=== PATIENT | male | born 1955 | race Caucasian/White ===

== ENCOUNTER 2017-10-17 22:49 | Emergency (ER) | payer OTHER ==
[~2017-10-17] VITALS: Ht 180.3 cm; Wt 96.9 kg
[~2017-10-17 22:49] MED LIST: FELO10TA PO; LISI-363 PO
[2017-10-17 22:58] VITALS: BP 133/68; PULSE 82; RESP 16; TEMP 97.7; O2SAT 95
[2017-10-17 23:10] VITALS: BP 133/68; PULSE 82; RESP 16; TEMP 97.7; O2SAT 95
[2017-10-17] MEDS ORDERED: LISI-515 PO (23:15)
--- NOTE | 2017-10-17 23:18 | PD ---
HPI . Wrist bleeding Chief Complaint: bleeding Time Seen by Provider: 23:08 Travel History International Travel<30 days: No Contact w/Intl Traveler<30days: No History of Present Illness HPI This patient presents with bleeding from his right wrist. History of chronic liver disease. He has multiple superficial hematomas. He states that he inadvertently was struck in the right wrist by a guitar string last night. He states that he has not been able to get the bleeding to stop since that time. He states that he has no pain. He is just concerned because her menstrual bleeding. PFSH Past Medical History High Cholesterol: Yes Diabetes: No Hepatitis: No Hiatal Hernia: No Hypertension: Yes Respiratory: Yes (HX BRONCHITIS, CHILDHOOD ASTHMA) Thyroid Disease: No Past Surgical History Pacemaker: No Tonsillectomy: Yes Other Surgery: Yes (COLON POLYPS; LIVER BIOPSIES) Social History Alcohol Use: Yes Tobacco Use: No Substance Use: No Allergies-Medications (Allergen,Severity, Reaction): Coded Allergies: penicillin G (Unverified Allergy, Severe, RASH, 06/25/17) Reported Meds & Prescriptions Reported Meds & Active Scripts Active Reported Lisinopril 20 Mg Tab 20 Mg PO DAILY Plendil (Felodipine) 10 Mg Tab 10 Mg PO DAILY Review of Systems Except as stated in HPI: all other systems reviewed are Neg Genitourinary: Positive: Other (chronic liver disease) Skin: Positive Other (bleeding) Hematologic/Lymphatic: Positive: Easy Bruising, Other (hemachromatosis) Physical Exam Narrative GENERAL: Awake and alert and in no acute distress. SKIN: Warm and dry. Multiple superficial bruises. He has an oozing wound on the right wrist. HEAD: Normocephalic/atraumatic. EYES: Pupils are equal. Extraocular movements are intact. NECK: Normal range of motion. CARDIOVASCULAR: Regular rate and rhythm. RESPIRATORY: Nonlabored respirations. MUSCULOSKELETAL: Atraumatic. NEUROLOGICAL: Nonfocal. PSYCHIATRIC: Appropriate mood and affect. Data Data Last Documented VS Vital Signs Date Time Temp Pulse Resp B/P (MAP) Pulse Ox O2 Delivery O2 Flow Rate FiO2 10/17/17 22:58 97.7 82 16 133/68 (89) 95 MDM Medical Decision Making Medical Screen Exam Complete: Yes Emergency Medical Condition: Yes Differential Diagnosis Differential diagnosis includes but is not limited to a thrombocytopenia, platelet dysfunction, coagulopathy Narrative Course This is a patient with chronic liver disease who presents with a superficial wound to his right wrist that won't stop bleeding. I have treated him with quick clot and a pressure dressing. He'll be discharged home with instructions to leave the dressing in place for 24 hours. Diagnosis Primary Impression: Bleeding Additional Instructions: Leave this dressing on for 24 hours. Return if you bleed through the dressing. Disposition: 01 DISCHARGE HOME Condition: Stable Елена Lay MD Oct 17, 2017 23:18
[2017-10-17 23:22] VITALS: BP 118/82
== END 2017-10-17 23:41 | disposition home or self-care (01) ==
LOC: PHED 22:49
DX: R58 Hemorrhage, not elsewhere classified (principal); I10 Essential (primary) hypertension
CPT/HCPCS: 99282

== ENCOUNTER 2017-11-17 11:11 | Emergency (ER) | payer OTHER ==
[~2017-11-17] VITALS: Ht 180.3 cm; Wt 95.6 kg
[~2017-11-17 11:11] MED LIST changes: -FELO10TA PO; -LISI-363 PO; +LISI-515 PO
[2017-11-17 11:26] VITALS: BP 161/93; PULSE 76; RESP 15; TEMP 99.2; O2SAT 97
[2017-11-17] MEDS ORDERED: KETOROLAC TROMETHAMINE 60 MG/2 ML (IM) VIAL IM ONE (12:00)
[2017-11-17] MEDS ORDERED: ORPHENADRINE INJ 60 MG/2 ML AMP IM ONE (12:00)
--- NOTE | 2017-11-17 12:08 | PD ---
HPI Chief Complaint: Musculoskeletal Complaint Time Seen by Provider: 11:48 Travel History International Travel<30 days: No Contact w/Intl Traveler<30days: No Traveled to known affect area: No History of Present Illness HPI This is a 62-year-old male who presents to the emergency department with right shoulder pain, constant since yesterday, moderate severity worse with lifting his arm with no associated numbness or weakness. He denies any injuries. Several years ago he was told that he had an impingement by Dr. Cruz and was told he needed surgery but the symptoms went away. He takes Aleve on a daily basis but otherwise hasn't taken anything for pain. PFSH Past Medical History Cancer: No Cardiovascular Problems: No High Cholesterol: Yes Diabetes: No Diminished Hearing: No Hepatitis: No Hiatal Hernia: No Hypertension: Yes Respiratory: Yes (HX BRONCHITIS, CHILDHOOD ASTHMA) Thyroid Disease: No Tetanus Vaccination: Unknown Past Surgical History Pacemaker: No Tonsillectomy: Yes Other Surgery: Yes (COLON POLYPS; LIVER BIOPSIES) Social History Alcohol Use: Yes (Ocassional ) Tobacco Use: No Substance Use: No Allergies-Medications (Allergen,Severity, Reaction): Coded Allergies: penicillin G (Verified Allergy, Severe, RASH, 11/17/17) Reported Meds & Prescriptions Reported Meds & Active Scripts Active Reported Lisinopril 20 Mg Tab 20 Mg PO DAILY Review of Systems General / Constitutional: No: Fever, Chills Cardiovascular: No: Chest Pain or Discomfort Respiratory: No: Shortness of Breath Physical Exam Narrative GENERAL: Well-appearing, no acute distress, nontoxic SKIN: Warm and dry. HEAD: Atraumatic. Normocephalic. ENT: No nasal bleeding or discharge. Moist mucous membranes MUSCULOSKELETAL: Tender along the anterior humeral head with pain with resistance to external and internal rotation of the shoulder as well as pain with Neer's test VASCULAR: 2+ R radial pulse with normal capillary refill. NEUROLOGICAL: Awake and alert. No obvious cranial nerve deficits. Motor grossly within normal limits. Normal speech. Sensation grossly intact in the right hand. PSYCHIATRIC: Appropriate mood and affect; insight and judgment normal. Data Data Last Documented VS Vital Signs Date Time Temp Pulse Resp B/P (MAP) Pulse Ox O2 Delivery O2 Flow Rate FiO2 11/17/17 11:26 99.2 76 15 161/93 (115) 97 Orders Orders Shoulder, Complete (>2vws) (11/17/17 ) Ketorolac Inj (Toradol Inj) (11/17/17 12:00) Orphenadrine Inj (Norflex Inj) (11/17/17 12:00) MDM Medical Decision Making Medical Screen Exam Complete: Yes Emergency Medical Condition: Yes Interpretation(s) Afebrile, hypertensive Differential Diagnosis Impingement syndrome, rotator cuff injury, arthritis, shoulder dislocation, tumor Narrative Course This is a 62-year-old male who presents to the emergency department with right shoulder pain that's been worsening over the past 2 days. He's been told in the past that he has an impingement of the glenohumeral joint. He has a normal neurovascular exam. 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 X- ray demonstrates degenerative changes of the glenohumeral joint and the acromioclavicular joint. I think patient would benefit from outpatient orthopedics follow-up. He was given a muscle relaxer and anti-inflammatories and will be discharged on meloxicam. Diagnosis Primary Impression: Shoulder pain Qualified Codes: M25.511 - Pain in right shoulder Patient Instructions: General Instructions Additional Instructions: If you develop numbness, weakness, fever or severe pain return to the emergency room. Follow-up with orthopedics as soon as possible. Med/Other Pt SpecificInfo: Prescription(s) given Scripts Cyclobenzaprine (Flexeril) 5 Mg Tab 5 MG PO TID for Muscle Spasm, #15 TAB 0 Refills Prov: Violet Cardoso MD 11/17/17 Meloxicam (Meloxicam) 7.5 Mg Tab 7.5 MG PO DAILY for Arthritis Pain for 14 Days, #14 TAB 0 Refills Prov: Violet Cardoso MD 11/17/17 Disposition: 01 DISCHARGE HOME Condition: Stable Violet Cardoso MD Nov 17, 2017 12:08
--- NOTE | 2017-11-17 12:51 | RADRPT ---
EXAM DATE/TIME: 11/17/2017 12:09 [facility] COMPARISON: No previous studies available for comparison. INDICATIONS : Onset of severe right shoulder pain with limited ROM, no known injury MEDICAL HISTORY : None. SURGICAL HISTORY : None. ENCOUNTER: Initial ACUITY: 2 days PAIN SCORE: 10/10 LOCATION: Right shoulder FINDINGS: There is no acute fracture or dislocation of the right shoulder. Mild degenerative changes are noted involving the right glenohumeral and acromioclavicular joints. CONCLUSION: 1. No acute fracture or dislocation. 2. Mild degenerative changes involving the right glenohumeral and acromioclavicular joints. Lawson Lindsey MD on November 17, 2017 at 12:48 Board Certified Radiologist. This report was verified electronically.
[2017-11-17] MEDS ORDERED: MELO7.5T27 PO (13:13)
[2017-11-17] MEDS ORDERED: CYCL5TAB PO (13:13)
[2017-11-17 13:27] VITALS: RESP 16
== END 2017-11-17 13:29 | disposition home or self-care (01) ==
LOC: PHEFT 11:11
DX: M25.511 Pain in right shoulder (principal); I10 Essential (primary) hypertension; E78.00 Pure hypercholesterolemia, unspecified
CPT/HCPCS: 73030; 96372; 99284; J1885; J2360